=== PATIENT | female | born 1990 | race Caucasian/White ===

== ENCOUNTER 2017-07-11 06:53 | Inpatient (IN) | payer OTHER ==
[2017-07-11] MEDS ORDERED: Sodium Chloride 0.9% 10 ML Syringe FLUSH PRN (07:02)
[2017-07-11] MEDS ORDERED: Ondansetron 4 MG/2 ML SDV IVPUSH PRN (07:02)
[2017-07-11] MEDS ORDERED: Nalbuphine 20 MG/1 ML Amp IVPUSH PRN (07:02)
--- NOTE | 2017-07-11 07:11 | PCM.LDHP ---
L&D History of Present Illness - General Date of Service: 07/11/17 Admit Problem/Dx: Patient Status Order with Admit Dx/Problem 07/11/17 07:04 Patient Status [ADT] Routine Admission Diagnosis/Problem Admission Diagnosis/Problem Normal Source of Information: Patient History Limitations: Reports: No Limitations - History of Present Illness Introduction:: Patient is a 26 y/o at 39 5/7 wks who presents for elective IOL. Doing well today. No issues or concerns. Having some contractions, but nothing patterned. 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: , 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 : 3 Para: 1 LMP (Approximate): Musculoskeletal History: Reports: RA - Past Surgical History HEENT Surgical History: Reports: Eye Surgery Social & Family History - Tobacco Use Smoking Status *Q: Never Smoker - Alcohol Use Alcohol Use History: No - Recreational Drug Use Recreational Drug Use: No H&P Review of Systems - Review of Systems: Review Of Systems: See Below General: Reports: No Symptoms Pulmonary: Reports: No Symptoms Cardiovascular: Reports: No Symptoms Gastrointestinal: Reports: No Symptoms Genitourinary: Reports: No Symptoms Musculoskeletal: Reports: No Symptoms Psychiatric: Reports: No Symptoms Neurological: Reports: No Symptoms L&D Exam - Exam Exam: See Below - OB Specific Contraction Intensity: Irritability Movement: Active Heart Tones: Present Heart Tones per Min: 135 Heart Rate (FHR) Variability: Moderate (6-25 bmp) Presentation: Vertex - Oh Score Oh Score Cervix Position: Midposition Oh Score Consistency: Soft Oh Score Effacement: 51-70% Oh Score Dilation: 3-4 cm Oh Score Infant's Station: -2 Oh Score Total: 8 - Exam General: Alert, Oriented, Cooperative Lungs: Clear to Auscultation, Normal Respiratory Effort Cardiovascular: Regular Rate, Regular Rhythm GI/Abdominal Exam: Soft, Non-Tender Genitourinary: Normal external exam Extremities: Normal Inspection Skin: Warm, Dry, Intact - Problem List (1) 39 weeks gestation of SNOMED Code(s): 11254083 ICD Code: Z3A.39 - 39 WEEKS GESTATION OF Status: Acute Current Visit: Yes (2) Normal SNOMED Code(s): 47963901 ICD Code: Z34.90 - ENCNTR FOR SUPRVSN OF NORMAL , UNSP, UNSP TRIMESTER Status: Acute Current Visit: Yes Qualifiers: Trimester: third trimester Qualified Code(s): Z34.93 - Encounter for supervision of normal , unspecified, third trimester Problem List Initiated/Reviewed/Updated: Yes Orders Last 24hrs: Active Orders 24 hr Category Date Time Status Patient Status [ADT] Routine ADT 07/11/17 07:04 Ordered Activity as Tolerated [RC] PFP Care 07/11/17 07:03 Ordered Communication Order [RC] ASDIRECTED Care 07/11/17 07:03 Ordered Communication Order [RC] ASDIRECTED Care 07/11/17 07:03 Ordered Communication Order [RC] ASDIRECTED Care 07/11/17 07:03 Ordered Heart Tones [RC] ASDIRECTED Care 07/11/17 07:04 Ordered Notify Provider [RC] ASDIRECTED Care 07/11/17 07:03 Ordered Notify Provider [RC] PRN Care 07/11/17 07:03 Ordered Peripheral IV Care [RC] . DIRECTED Care 07/11/17 07:04 Ordered Up ad Ginny [RC] ASDIRECTED Care 07/11/17 07:03 Ordered Vaginal Exam [RC] ASDIRECTED Care 07/11/17 07:03 Ordered Vital Signs [RC] ASDIRECTED Care 07/11/17 07:03 Ordered Vital Signs [RC] PER UNIT ROUTINE Care 07/11/17 07:03 Ordered Regular Diet [DIET] Diet 07/11/17 Breakfast Ordered CBC W/O DIFF,HEMOGRAM [HEME] Routine Lab 07/11/17 07:02 Ordered TYPE AND SCREEN [BBK] Routine Lab 07/11/17 07:02 Ordered Lactated Ringers [Ringers, Lactated] 1,000 ml Med 07/11/17 07:15 Ordered IV ASDIRECTED Nalbuphine [Nubain] Med 07/11/17 07:02 Ordered 10 mg IVPUSH Q2H PRN Ondansetron [Zofran] Med 07/11/17 07:02 Ordered 4 mg IVPUSH Q4H PRN Oxytocin/Lactated Ringers [Pitocin in LR 10 Units/1,000 Med 07/11/17 07:15 Ordered ML] 10 unit in 1,000 ml IV .CONTINUOUS Oxytocin/Lactated Ringers [Pitocin in LR 10 Units/1,000 Med 07/11/17 07:15 Ordered ML] 10 unit in 1,000 ml IV TITRATE Sodium Chloride 0.9% [Saline Flush] Med 07/11/17 07:02 Ordered 10 ml FLUSH ASDIRECTED PRN Electronic Heart Tones Ext w TOCO [WOMSER] Oth 07/11/17 07:03 Ordered Routine Electronic Heart Tones Internal [WOMSER] Per Unit Oth 07/11/17 07:03 Ordered Routine Peripheral IV Insertion Adult [OM.PC] Routine Oth 07/11/17 07:03 Ordered Resuscitation Status Routine Resus Stat 07/11/17 07:02 Ordered Medication Orders Lactated Ringer's (Ringers, Lactated) 1,000 mls @ 40 mls/hr IV ASDIRECTED ERIN Oxytocin/Lactated Ringer's (Pitocin In Lr 10 Units/1,000 Ml) 10 unit in 1,000 mls @ 12 mls/hr IV TITRATE ERIN; Protocol Oxytocin/Lactated Ringer's (Pitocin In Lr 10 Units/1,000 Ml) 10 unit in 1,000 mls @ 500 mls/hr IV .CONTINUOUS ERIN Nalbuphine HCl (Nubain) 10 mg IVPUSH Q2H PRN PRN Reason: Pain (moderate 4-6) Ondansetron HCl (Zofran) 4 mg IVPUSH Q4H PRN PRN Reason: Nausea/Vomiting Sodium Chloride (Saline Flush) 10 ml FLUSH ASDIRECTED PRN PRN Reason: Keep Vein Open Assessment/Plan Comment:: 26 y/o at 39 5/7 wks who presents for elective IOL * CBC and T&S * GBS negative, no need for antibiotics * Pitocin with AROM when able * Pain management per patient preference * Anticipate
[2017-07-11] MEDS ORDERED: Oxytocin/Lactated Ringers 10 UNIT/1,000 ML BAG IV SCH ×2 (07:15)
[2017-07-11] MEDS ORDERED: Lactated Ringers 1,000 ML IV SCH (07:15)
--- NOTE | 2017-07-11 13:11 | PCM.PNLD ---
Labor Progress Note - VS & Meds Vital Signs: Last Vital Signs Temp 37.1 C 07/11/17 07:03 Pulse 69 07/11/17 07:15 Resp BP 114/77 07/11/17 07:15 Pulse Ox Active Medications: Current Medications Lactated Ringer's (Ringers, Lactated) 1,000 mls @ 40 mls/hr IV ASDIRECTED ERIN Last Admin: 07/11/17 07:59 Dose: 40 mls/hr Oxytocin/Lactated Ringer's (Pitocin In Lr 10 Units/1,000 Ml) 10 unit in 1,000 mls @ 12 mls/hr IV TITRATE ERIN; Protocol Last Titration: 07/11/17 09:22 Dose: 0 munits/min, 0 mls/hr Oxytocin/Lactated Ringer's (Pitocin In Lr 10 Units/1,000 Ml) 10 unit in 1,000 mls @ 500 mls/hr IV .CONTINUOUS ERIN Nalbuphine HCl (Nubain) 10 mg IVPUSH Q2H PRN PRN Reason: Pain (moderate 4-6) Ondansetron HCl (Zofran) 4 mg IVPUSH Q4H PRN PRN Reason: Nausea/Vomiting Sodium Chloride (Saline Flush) 10 ml FLUSH ASDIRECTED PRN PRN Reason: Keep Vein Open - Uterine Contractions Uterine Monitoring Mode: External [place] Contraction Intensity: Mild to Moderate - Monitoring Monitor Mode: External Ultrasound Heart Rate (FHR) Baseline: 135 Heart Rate (FHR) Variability: Moderate (6-25 bmp) Accelerations: Present, 15x15 Decelerations: None - Vaginal Exam Dilation (cm): 3 Effacement (Percent): 50 Station: -2 Cervical Position: Midposition - Labor Progress (Free Text) Labor Progress: Patient on 2 of pitocin. AROM performed with release of clear fluid. Continue present management
--- NOTE | 2017-07-11 13:12 | PCM.PNLD ---
Labor Progress Note - VS & Meds Vital Signs: Last Vital Signs Temp 37.1 C 07/11/17 07:03 Pulse 69 07/11/17 07:15 Resp BP 114/77 07/11/17 07:15 Pulse Ox Active Medications: Current Medications Lactated Ringer's (Ringers, Lactated) 1,000 mls @ 40 mls/hr IV ASDIRECTED ERIN Last Admin: 07/11/17 07:59 Dose: 40 mls/hr Oxytocin/Lactated Ringer's (Pitocin In Lr 10 Units/1,000 Ml) 10 unit in 1,000 mls @ 12 mls/hr IV TITRATE ERIN; Protocol Last Titration: 07/11/17 09:22 Dose: 0 munits/min, 0 mls/hr Oxytocin/Lactated Ringer's (Pitocin In Lr 10 Units/1,000 Ml) 10 unit in 1,000 mls @ 500 mls/hr IV .CONTINUOUS ERIN Nalbuphine HCl (Nubain) 10 mg IVPUSH Q2H PRN PRN Reason: Pain (moderate 4-6) Ondansetron HCl (Zofran) 4 mg IVPUSH Q4H PRN PRN Reason: Nausea/Vomiting Sodium Chloride (Saline Flush) 10 ml FLUSH ASDIRECTED PRN PRN Reason: Keep Vein Open - Uterine Contractions Uterine Monitoring Mode: External [place] Contraction Intensity: Mild to Moderate - Monitoring Monitor Mode: External Ultrasound Heart Rate (FHR) Baseline: 145 Heart Rate (FHR) Variability: Moderate (6-25 bmp) Accelerations: Present, 15x15 Decelerations: Late, Variable, Intermittent (<50% x 20 min) Strip Review: Category II - Vaginal Exam Dilation (cm): 4-5 Effacement (Percent): 70 Station: -2 Cervical Position: Midposition - Labor Progress (Free Text) Labor Progress: Doing well. Pitocin discontinued at 1030 due to patient having frequent contractions. Continue present management
--- NOTE | 2017-07-11 14:20 | PCM.DEL ---
L & D Note - General Info Date of Service: 07/11/17 - Delivery Note Labor: Induced by ARM Delivery Outcome: Livebirth Infant Delivery Method: Spontaneous Vaginal Delivery-Single Infant Delivery Mode: Spontaneous Presentation: Right Occiput Anterior (SAWYER) Nuchal Cord: None Anesthesia Type: None Amniotic Fluid Description: Clear Episiotomy Type: None Laceration: None Placenta: Intact, Spontaneous Cord: 3 Vessels Estimated Blood Loss: 250 Resuscitation Needed: Yes [place]: Bulb Syringe, Stimulated, Warmed, [place] Used Score 1 min: 9 Score 5 min: 9 Delivery Comments (Free Text/Narrative):: Patient found to be complete and began pushing. With maternal pushing effort head delivered from an SAWYER presentation. No nuchal cord present. With gentle downward traction the shoulders and body delivered. Infant placed on maternal abdomen. Cord clamped and cut. Cord blood obtained. Placenta allowed time to separate and expelled intact. Inspection of the perineum showed no lacerations - Patient Data Vitals - Most Recent: Last Vital Signs Temp 37.1 C 07/11/17 07:03 Pulse 69 07/11/17 07:15 Resp BP 114/77 07/11/17 07:15 Pulse Ox Weight - Most Recent: 85.638 kg I&O - Last 24 Hours: Intake & Output 07/10/17 07/11/17 07/11/17 22:59 06:59 14:59 Intake Total 420 Balance 420 Lab Results Last 24 Hours: Laboratory Results - last 24 hr 07/11/17 07/11/17 Range/Units 07:39 07:39 WBC 12.15 H (3.98-10.04) K/mm3 RBC 3.97 L (3.98-5.22) M/mm3 Hgb 11.3 (11.2-15.7) gm/L Hct 34.0 L (34.1-44.9) % MCV 85.6 (79.4-94.8) fl MCH 28.5 (25.6-32.2) pg MCHC 33.2 (32.2-35.5) g/dl RDW Std Deviation 40.4 (36.4-46.3) fL Plt Count 252 (182-369) K/mm3 MPV 10.8 (9.4-12.3) fl Blood Type A POSITIVE Gel Antibody Screen Negative Med Orders - Current: Current Medications Lactated Ringer's (Ringers, Lactated) 1,000 mls @ 40 mls/hr IV ASDIRECTED ERIN Last Admin: 07/11/17 07:59 Dose: 40 mls/hr Oxytocin/Lactated Ringer's (Pitocin In Lr 10 Units/1,000 Ml) 10 unit in 1,000 mls @ 12 mls/hr IV TITRATE ERIN; Protocol Last Titration: 07/11/17 09:22 Dose: 0 munits/min, 0 mls/hr Oxytocin/Lactated Ringer's (Pitocin In Lr 10 Units/1,000 Ml) 10 unit in 1,000 mls @ 500 mls/hr IV .CONTINUOUS ERIN Nalbuphine HCl (Nubain) 10 mg IVPUSH Q2H PRN PRN Reason: Pain (moderate 4-6) Ondansetron HCl (Zofran) 4 mg IVPUSH Q4H PRN PRN Reason: Nausea/Vomiting Sodium Chloride (Saline Flush) 10 ml FLUSH ASDIRECTED PRN PRN Reason: Keep Vein Open - Problem List & Annotations (1) 39 weeks gestation of SNOMED Code(s): 21914770 Code(s): Z3A.39 - 39 WEEKS GESTATION OF Status: Acute Current Visit: Yes (2) Normal SNOMED Code(s): 79349976 Code(s): Z34.90 - ENCNTR FOR SUPRVSN OF NORMAL , UNSP, UNSP TRIMESTER Status: Acute Current Visit: Yes Qualifiers: Trimester: third trimester Qualified Code(s): Z34.93 - Encounter for supervision of normal , unspecified, third trimester (3) Vaginal delivery SNOMED Code(s): 230584568 Code(s): O80 - ENCOUNTER FOR FULL-TERM UNCOMPLICATED DELIVERY Status: Acute Current Visit: No - Problem List Review Problem List Initiated/Reviewed/Updated: Yes - My Orders Last 24 Hours: My Active Orders 07/11/17 07:02 Nalbuphine [Nubain] 10 mg IVPUSH Q2H PRN Ondansetron [Zofran] 4 mg IVPUSH Q4H PRN Sodium Chloride 0.9% [Saline Flush] 10 ml FLUSH ASDIRECTED PRN Resuscitation Status Routine 07/11/17 07:03 Activity as Tolerated [RC] PFP Communication Order [RC] ASDIRECTED Communication Order [RC] ASDIRECTED Communication Order [RC] ASDIRECTED Notify Provider [RC] ASDIRECTED Notify Provider [RC] PRN Up ad Ginny [RC] ASDIRECTED Vaginal Exam [RC] ASDIRECTED Vital Signs [RC] ASDIRECTED Electronic Heart Tones Ext w TOCO [WOMSER] Routine Electronic Heart Tones Internal [WOMSER] Per Unit Routine Peripheral IV Insertion Adult [OM.PC] Routine 07/11/17 07:04 Patient Status [ADT] Routine Heart Tones [RC] ASDIRECTED Peripheral IV Care [RC] Q2HR 07/11/17 07:15 Lactated Ringers [Ringers, Lactated] 1,000 ml IV ASDIRECTED Oxytocin/Lactated Ringers [Pitocin in LR 10 Units/1,000 ML] 10 unit in 1,000 ml IV .CONTINUOUS Oxytocin/Lactated Ringers [Pitocin in LR 10 Units/1,000 ML] 10 unit in 1,000 ml IV TITRATE 07/11/17 Breakfast Regular Diet [DIET] - Assessment Assessment:: 26 y/o G3 now P2012 PPD#0 from at 39 5/7 wks - Plan Plan:: * Routine cares * Encourage breast feeding * Discharge home in 1-2 days
[2017-07-11] MEDS ORDERED: Benzocaine/Menthol 20%-0.5% Spray 56 GM Canister TOP PRN (14:30)
[2017-07-11] MEDS ORDERED: Docusate Sodium 100 MG Cap PO PRN (14:30)
[2017-07-11] MEDS ORDERED: Lanolin 100% Cream 7 GM Tube TOP PRN (14:30)
[2017-07-11] MEDS ORDERED: Acetaminophen 325 MG Tab PO PRN (14:30)
[2017-07-11] MEDS ORDERED: Witch Hazel Medicated Pads 100/Jar TOP PRN (14:30)
[2017-07-11] MEDS: Ibuprofen 600 MG Tab PO PRN (18:53)
[2017-07-12] MEDS: Ibuprofen 600 MG Tab PO PRN (06:18)
--- NOTE | 2017-07-12 07:11 | PCM.DCSUM1 ---
Discharge Summary - Hospital Course Brief History: 26 year old [id number] female who presented for elective induction of labor. Uncomplicated labor and . Desires discharge home PPD1. - Discharge Data Discharge Date: 07/12/17 Discharge Disposition: Home, Self-Care 01 Condition: Good - Patient Summary/Data Operative Procedure(s) Performed: - Patient Instructions Diet: Usual Diet as Tolerated Activity: No Strenuous Activities Driving: May Drive Today Showering/Bathing: May Shower Notify Provider of: Fever, Increased Pain, Swelling and Redness, Drainage, Nausea and/or Vomiting - Discharge Plan Home Medications: Home Meds Vit #108/Iron/FA [ One Tablet] 1 each PO DAILY 07/18/15 [ History] Referrals: Pamela Dutton MD [Primary Care Provider] - (2 weeks) - Discharge Summary/Plan Comment DC Time >30 min.: No - General Info Date of Service: 07/12/17 Functional Status: Reports: Pain Controlled - Review of Systems General: Reports: No Symptoms HEENT: Reports: No Symptoms Pulmonary: Reports: No Symptoms Cardiovascular: Reports: No Symptoms Gastrointestinal: Reports: No Symptoms Genitourinary: Reports: No Symptoms Musculoskeletal: Reports: No Symptoms Skin: Reports: No Symptoms Neurological: Reports: No Symptoms Psychiatric: Reports: No Symptoms - Patient Data Vitals - Most Recent: Last Vital Signs Temp 36.6 C 07/12/17 04:00 Pulse 58 L 07/12/17 03:46 Resp 16 07/12/17 03:46 BP 107/60 07/12/17 03:46 Pulse Ox 99 07/12/17 03:46 Weight - Most Recent: 85.638 kg I&O - Last 24 hours: Intake & Output 07/11/17 07/12/17 07/12/17 22:59 06:59 14:59 Intake Total 300 Balance 300 Lab Results - Last 24 hrs: Laboratory Results - last 24 hr 07/11/17 07/11/17 Range/Units 07:39 07:39 WBC 12.15 H (3.98-10.04) K/mm3 RBC 3.97 L (3.98-5.22) M/mm3 Hgb 11.3 (11.2-15.7) gm/L Hct 34.0 L (34.1-44.9) % MCV 85.6 (79.4-94.8) fl MCH 28.5 (25.6-32.2) pg MCHC 33.2 (32.2-35.5) g/dl RDW Std Deviation 40.4 (36.4-46.3) fL Plt Count 252 (182-369) K/mm3 MPV 10.8 (9.4-12.3) fl Blood Type A POSITIVE Gel Antibody Screen Negative Med Orders - Current: Current Medications Acetaminophen (Tylenol) 650 mg PO Q4H PRN PRN Reason: mild pain or fever Benzocaine/Menthol (Dermoplast Pain Relief [place]) 0 gm TOP ASDIRECTED PRN PRN Reason: Perineal Comfort Measure Docusate Sodium (Colace) 100 mg PO BID PRN PRN Reason: Constipation Emollient Ointment (Lansinoh Hpa) 0 gm TOP ASDIRECTED PRN PRN Reason: Sore Nipples Ibuprofen (Motrin) 600 mg PO Q6H PRN PRN Reason: Mild pain or fever Last Admin: 07/12/17 06:18 Dose: 600 mg Witch Sharyn (Tucks) 1 pad TOP ASDIRECTED PRN PRN Reason: Hemorrhoid pain Discontinued Medications Lactated Ringer's (Ringers, Lactated) 1,000 mls @ 40 mls/hr IV ASDIRECTED ERIN Last Admin: 07/11/17 07:59 Dose: 40 mls/hr Oxytocin/Lactated Ringer's (Pitocin In Lr 10 Units/1,000 Ml) 10 unit in 1,000 mls @ 12 mls/hr IV TITRATE ERIN; Protocol Last Titration: 07/11/17 09:22 Dose: 0 munits/min, 0 mls/hr Oxytocin/Lactated Ringer's (Pitocin In Lr 10 Units/1,000 Ml) 10 unit in 1,000 mls @ 500 mls/hr IV .CONTINUOUS ERIN Nalbuphine HCl (Nubain) 10 mg IVPUSH Q2H PRN PRN Reason: Pain (moderate 4-6) Ondansetron HCl (Zofran) 4 mg IVPUSH Q4H PRN PRN Reason: Nausea/Vomiting Sodium Chloride (Saline Flush) 10 ml FLUSH ASDIRECTED PRN PRN Reason: Keep Vein Open - Exam General: Reports: Alert, Oriented HEENT: Reports: Pupils Equal, Pupils Reactive, EOMI, Mucous Membr. Moist/[place] Neck: Reports: Supple Lungs: Reports: Normal Respiratory Effort Cardiovascular: Reports: Regular Rate, Regular Rhythm GI/Abdominal Exam: Normal Bowel Sounds, Soft, Non-Tender, No Organomegaly, No Distention, No Abnormal Bruit, No Mass, Pelvis Stable Back Exam: Reports: Normal Inspection, Full Range of Motion Extremities: Normal Inspection, Normal Range of Motion, Non-Tender, No Pedal Edema, Normal Capillary Refill Skin: Reports: Warm, Dry, Intact Wound/Incisions: Reports: Healing Well Neurological: Reports: No New Focal Deficit Psy/Mental Status: Reports: Alert, Normal Affect, Normal Mood
[2017-07-12 15:04] VITALS: BP 133/68
== END 2017-07-12 14:30 | disposition home or self-care (01) | DRG 775 ==
LOC: JD.OB 06:53 → OBSVTOIN 14:03 → JD.OB 14:04
PROVIDERS: ADMIT Obstetrics & Gynecology; ATTEND Obstetrics & Gynecology
PROC: 10E0XZZ Delivery of Products of Conception, External Approach (ICD-10-PCS; principal; 2017-07-11)
PROC: 10907ZC Drainage of Amniotic Fluid, Therapeutic from Products of Conception, Via Natural or Artificial Opening (ICD-10-PCS; 2017-07-11)
PROC: 3E033VJ Introduction of Other Hormone into Peripheral Vein, Percutaneous Approach (ICD-10-PCS; 2017-07-11)
DX: O80 Encounter for full-term uncomplicated delivery (principal); Z3A.39 39 weeks gestation of pregnancy; Z37.0 Single live birth
CPT/HCPCS: 36415; 59025; 59409; 85027; 86850; 86900; 86901; A9270-GY; J2590; J7120

== ENCOUNTER 2019-04-22 16:12 | Emergency (ER) | payer OTHER ==
[2019-04-22 16:33] VITALS: BP 138/85; PULSE 71
[2019-04-22] MEDS ORDERED: Orphenadrine 100 MG Tab.ER PO ONE (16:40)
[2019-04-22] MEDS ORDERED: Ketorolac 30 MG/ML SDV IM ONE (16:40)
[2019-04-22] MEDS ORDERED: Dexamethasone 10 MG/ML SDV IM ONE (16:40)
--- NOTE | 2019-04-22 16:46 | EDM.PDOC ---
ED HPI GENERAL MEDICAL PROBLEM - General Chief Complaint: Back Pain or Injury Stated Complaint: BACK PAIN AND LEG NUMBNESS Time Seen by Provider: 04/22/19 16:23 Source of Information: Reports: Patient, RN Notes Reviewed History Limitations: Reports: No Limitations - History of Present Illness INITIAL COMMENTS - FREE TEXT/NARRATIVE: Patient is a 28-year-old female who presents to the ED for the evaluation of ongoing back pain and leg numbness. The patient notes that she went to the walk -in clinic last weekend for this low back pain. She was given some hydrocodone , had an x-ray obtained, and was provided with a lumbar MRI. She states that her insurance is not preauthorized this yet, so she is not got that test at this time. The patient notes that 6 weeks ago, as when she started noticing the back pain originally. She has been using the chiropractor for pain management, otherwise she denies any trauma to the area. She notes that the pain is just been getting worse for the past 6 weeks. She notes that over the last 2 days over the pain is been more bothersome. She notes now that she has some numbness to the right lateral aspect of her leg, the pain has increased as well. She states that the hydrocodone is not helping the pain much at all. She denies any chance of . She is not having any dysuria, urinary frequency or urgency, she is not having any other complaints at this time. Treatments SHORT GOODS DRIER: Reports: Other (see below) Other Treatments SHORT GOODS DRIER: tylenol Lower Back Pain Score (Numeric/FACES): 10 - Related Data Allergies Allergy/AdvReac Type Severity Reaction Status Date / Time No Known Allergies Allergy Verified 07/18/15 12:28 Home Meds: Home Meds Orphenadrine [Norflex] 100 mg PO BID PRN #20 tab 04/22/19 [Rx] predniSONE 20 mg PO ASDIRECTED #15 tab 04/22/19 [Rx] Past Medical History [employer] History: Reports: , Spontaneous Musculoskeletal History: Reports: RA - Past Surgical History HEENT Surgical History: Reports: DEYANIRA Social & Family History - Family History Family Medical History: Noncontributory - Tobacco Use Smoking Status *Q: Former Smoker Used Tobacco, but Quit: Yes - Caffeine Use Caffeine Use: Reports: Coffee - Recreational Drug Use Recreational Drug Use: No ED ROS GENERAL - Review of Systems Review Of Systems: See Below Constitutional: Denies: Fever, Chills Respiratory: Denies: Shortness of Breath Cardiovascular: Denies: Chest Pain GI/Abdominal: Denies: Abdominal Pain, Nausea, Vomiting : Denies: Dysuria, Frequency, Urgency Musculoskeletal: Reports: Back Pain (R lower back pain), Leg Pain (R lateral leg with associated numbness) Neurological: Reports: Numbness (R lateral leg into toes) ED EXAM,LOWER BACK PAIN/INJURY - Physical Exam Exam: See Below Exam Limited By: No Limitations General Appearance: Alert, WD/WN, No Apparent Distress Eye Exam: Bilateral Eye: EOMI, Normal Inspection, PERRL Throat/Mouth: Normal Inspection, Normal Lips, Normal Teeth, Normal Gums, Normal Oropharynx, Normal Voice, No Airway Compromise Head: Atraumatic, Normocephalic Neck: Normal Inspection Respiratory/Chest: No Respiratory Distress, Lungs Clear, Normal Breath Sounds, No Accessory Muscle Use, Chest Non-Tender Cardiovascular: Normal Peripheral Pulses, Regular Rate, Rhythm, No Murmur GI/Abdominal: Normal Bowel Sounds, Soft, Non-Tender, No Distention, No Mass Back Exam: Normal Inspection, Muscle Spasm ( R lower back above iliac crest) Extremities: Normal Inspection, Normal Capillary Refill, Limited Range of Motion (of R leg d/t pain) Neurological: Alert, Normal Mood/Affect, Normal Dorsiflexion, CN II-XII Intact ( grossly), Normal Plantar Flexion, No Motor/Sensory Deficits, Oriented x 3, Abnormal Gait (Limping gait d/t pain), Straight Leg Raise (R). No: Straight Leg Raise (L), Saddle Anesthesia Psychiatric: Normal Affect, Normal Mood Skin Exam: Warm, Dry, Intact, Normal Color, No Rash Course - Vital Signs Last Recorded V/S: Last Vital Signs Temp 99.1 F 04/22/19 16:29 Pulse 71 04/22/19 16:29 Resp BP 138/85 04/22/19 16:29 Pulse Ox 100 04/22/19 16:29 - Orders/Labs/Meds Meds: Medications Discontinued Medications Generic Name Dose Route Start Last Admin Trade Name Link PRN Reason Stop Dose Admin Dexamethasone 10 mg 04/22/19 16:40 04/22/19 16:48 Dexamethasone IM 04/22/19 16:41 10 mg ONETIME ONE Administration Ketorolac Tromethamine 30 mg 04/22/19 16:40 04/22/19 16:48 Toradol IM 04/22/19 16:41 30 mg ONETIME ONE Administration Orphenadrine Citrate 100 mg 04/22/19 16:40 04/22/19 16:48 Norflex PO 04/22/19 16:41 100 mg ONETIME ONE Administration - Re-Assessments/Exams Free Text/Narrative Re-Assessment/Exam: 04/22/19 16:45 Patient presents to the ED for evaluation of increasing back pain with radiation to her right leg. Suspicious for sciatic in nature, will treat the patient with 10 mg IM dexamethasone, 30 mg IM Toradol, and 100 mg p.o. Norflex for management. Physical exam did elicit a muscle spasm within the right lower lumbar region. Hopeful that the medication combination will help the patient with her back pain until she can get her MRI. Will be sent home with p.o. Norflex and p.o. prednisone for continuing management. Departure - Departure Time of Disposition: 16:46 Disposition: Home, Self-Care 01 Condition: Fair Clinical Impression: Low back pain Qualifiers: Chronicity: acute Back pain laterality: right Sciatica presence: with sciatica Sciatica laterality: sciatica of right side Qualified Code(s): M54.41 - Lumbago with sciatica, right side - Discharge Information *PRESCRIPTION DRUG MONITORING PROGRAM REVIEWED*: No *COPY OF PRESCRIPTION DRUG MONITORING REPORT IN PATIENT DEEPA: No Prescriptions: Orphenadrine [Norflex] 100 mg PO BID PRN #20 tab PRN Reason: Spasms predniSONE 20 mg PO ASDIRECTED #15 tab Instructions: Back Exercises, [id number] Referrals: Jonelle Morris PA-C [Primary Care Provider] - Forms: ED Department Discharge Additional Instructions: You have been evaluated in the ED for your right lower back pain. Your symptoms are consistent with sciatic aggravation. You have been treated in the ER with an injection of steroids, and anti-inflammatory and a muscle relaxer. Please use ice/heat as tolerated to the affected area. You may take the hydrocodone as previously prescribed, for pain not relieved by prednisone alone. You were given a prescription for prednisone, and a muscle relaxer, Norflex, please take as directed for further pain relief. Please return to ED if your symptoms should change or worsen. Sepsis Event Note - Evaluation Sepsis Screening Result: No Definite Risk - Focused Exam Vital Signs: Vital Signs Temp Pulse BP Pulse Ox 04/22/19 16:29 99.1 F 71 138/85 100 Date Exam was Performed: 04/22/19 Time Exam was Performed: 17:14
== END 2019-04-22 17:27 | disposition home or self-care (01) ==
LOC: JD.ED 16:12
DX: M54.41 Lumbago with sciatica, right side (principal); M06.9 Rheumatoid arthritis, unspecified; Z79.52 Long term (current) use of systemic steroids; Z87.891 Personal history of nicotine dependence
CPT/HCPCS: 96372; 99284; A9270; J1100; J1885; 99283

== ENCOUNTER 2024-07-28 15:40 | Emergency (ER) | payer BC, OTHER ==
[2024-07-28 16:11] VITALS: BP 120/71
[2024-07-28] MEDS ORDERED: Diphtheria,Pertussis(Acell),Tetanus Vaccine 0.5 ML Syringe IM ONE (16:25)
[2024-07-28] MEDS: Amoxicillin/Clavulanate K 875-125 MG Tab PO ONE (16:35)
[2024-07-28 16:54] VITALS: PULSE 58
== END 2024-07-28 16:54 | disposition home or self-care (01) ==
LOC: JD.ED 15:40
DX: S61.250A Open bite of right index finger without damage to nail, initial encounter (principal); Z79.899 Other long term (current) drug therapy; W55.01XA Bitten by cat, initial encounter
CPT/HCPCS: 99283; A9270; 99282